=== PATIENT | female | born 1985 | race Two or more races ===

== ENCOUNTER 2020-12-26 13:55 | Emergency (ER) | payer OTHER ==
[~2020-12-26] VITALS: Ht 157.5 cm; Wt 82.1 kg
== END 2020-12-26 18:38 | disposition home or self-care (01) ==
LOC: ER 13:55
DX: R10.84 Generalized abdominal pain (principal)

== ENCOUNTER 2021-11-09 08:14 | Emergency (ER) | payer OTHER ==
[~2021-11-09] VITALS: Ht 157.5 cm; Wt 81.2 kg
[2021-11-09] MEDS ORDERED: KETO10TA2 PO (10:13)
== END 2021-11-09 11:50 | disposition home or self-care (01) ==
LOC: ER 08:14
DX: M79.672 Pain in left foot (principal)

== ENCOUNTER 2025-07-04 08:56 | Emergency (ER) | payer OTHER ==
[~2025-07-04] VITALS: Ht 157.5 cm; Wt 78.5 kg
[~2025-07-04 08:56] MED LIST: KETO10TA2 PO
[2025-07-04] MEDS ORDERED: ONDANSETRON HCL 2 MG/ML VIAL ONE (09:49)
[2025-07-04] MEDS ORDERED: FAMOTIDINE/PF 20 MG/2 ML VIAL ONE (09:50)
[2025-07-04] MEDS ORDERED: FAMOTIDINE/PF 20 MG/2 ML VIAL IV ONE (10:00)
[2025-07-04] MEDS ORDERED: ONDANSETRON HCL 2 MG/ML VIAL IV ONE (10:00)
[2025-07-04] MEDS ORDERED: 0.9 % SODIUM CHLORIDE 1,000 ML IV ONE (10:00)
[2025-07-04 10:40] LABS: BASO % 0.5 % (0.1-1.2); EOS # 0.10 (0.04-0.54); EOS % 1.1 % (0.7-7.0); LYMPH # 1.77 (1.18-3.74); LYMPH % 19.5 % (19.3-53.1); MEAN PLATELET VOLUME 9.80 fl (9.4-12.4); MONO # 0.66 (0.24-0.82); MONO % 7.3 % (4.7-12.5); NEUT # 6.49 (1.56-6.13); NEUT % 71.3 % (34.0-71.1); RED CELL DISTRIBUTION WIDTH 12.0 % (11.6-14.4)
[2025-07-04 11:09] LABS: URINE APPEARANCE Clear; URINE BILIRRUBIN Negative (NEGATIVE); URINE BLOOD Trace; URINE COLOR Yellow; URINE GLUCOSE Negative (NEGATIVE); URINE KETONE Negative (NEGATIVE); URINE LEUKOCYTE Negative; URINE NITRATE Negative; URINE PROTEIN Negative (NEGATIVE); URINE UROBILINOGEN 0.2 E.U./dl
[2025-07-04 11:13] LABS: URINE BACTERIA 172.7 uL (0.0-1933); URINE CAST 0.00 uL (0.0-1.40); URINE EPITHELIAL CELLS 2.4 uL (0.0-38.8); URINE RBC 14.3 uL (0.0-20.8); URINE WBC 0.7 uL (0.0-23.2)
[2025-07-04 11:29] LABS: ALT/SGPT 26.0 U/L (12-78); AST/SGOT 20.0 U/L (15-37); BILIRUBIN TOTAL 0.95 mg/dL (0.3-1.2); BUN CREA RATIO 13.0 (7.0-25.0); CREATININE SERUM 0.71 mg/dL (0.55-1.02); GFR 92.13; GLOBULINA 3.7 G/DL (2.4-3.5); GLUCOSE FASTING 90.0 mg/dL (65-100); OSMOLALITY SERUM 279.0 MOSM/KG (275-295)
[2025-07-04] MEDS ORDERED: KETOROLAC TROMETHAMINE 30 MG VIAL ONE (14:07)
[2025-07-04] MEDS ORDERED: KETOROLAC TROMETHAMINE 30 MG VIAL IV ONE (14:15)
== END 2025-07-04 14:24 | disposition home or self-care (01) ==
LOC: ER 08:57
PROVIDERS: General Practice
DX: N83.202 Unspecified ovarian cyst, left side (principal); R10.32 Left lower quadrant pain; K57.32 Diverticulitis of large intestine without perforation or abscess without bleeding

== ENCOUNTER 2025-07-11 21:45 | Emergency (ER) | payer OTHER ==
[~2025-07-11] VITALS: Ht 157.5 cm; Wt 77.6 kg
[2025-07-11] MEDS ORDERED: PROTONIX40 MG PO (22:11)
[2025-07-11] MEDS ORDERED: PEPCID AC20 MG (22:12)
[2025-07-11] MEDS ORDERED: FLUCONAZOLE150 MG PO (22:12)
[2025-07-11] MEDS ORDERED: DEXAMETHASONE SODIUM PHOSPHATE 4 MG/ML VIAL IM ONE (23:15)
[2025-07-11] MEDS ORDERED: FAMOTIDINE/PF 20 MG/2 ML VIAL IV ONE (23:15)
[2025-07-12] MEDS ORDERED: DEXAMETHASONE SODIUM PHOSPHATE 4 MG/ML VIAL ONE (01:06)
[2025-07-12] MEDS ORDERED: FAMOTIDINE/PF 20 MG/2 ML VIAL ONE (01:07)
[2025-07-12 02:44] LABS: BASO % 0.4 % (0.1-1.2); EOS # 0.12 (0.04-0.54); EOS % 1.2 % (0.7-7.0); LYMPH # 1.98 (1.18-3.74); LYMPH % 20.6 % (19.3-53.1); MEAN PLATELET VOLUME 10.30 fl (9.4-12.4); MONO # 0.66 (0.24-0.82); MONO % 6.9 % (4.7-12.5); NEUT # 6.79 (1.56-6.13); NEUT % 70.6 % (34.0-71.1); RED CELL DISTRIBUTION WIDTH 11.9 % (11.6-14.4)
[2025-07-12 03:16] LABS: BUN CREA RATIO 14.0 (7.0-25.0); CREATININE SERUM 0.81 mg/dL (0.55-1.02); GFR 79.13; GLUCOSE FASTING 93.0 mg/dL (65-100); OSMOLALITY SERUM 277.0 MOSM/KG (275-295)
[2025-07-12 04:47] LABS: COVID-19 AG NEGATIVE (NEGATIVE)
[2025-07-12] MEDS ORDERED: CARAFATE1 GM PO (05:17)
[2025-07-12] MEDS ORDERED: PEPCID40 MG PO (05:17)
== END 2025-07-12 05:38 | disposition home or self-care (01) ==
LOC: ER 21:46
PROVIDERS: Student in an Organized Health Care Education/Training Program
DX: K21.9 Gastro-esophageal reflux disease without esophagitis (principal); Z20.822 Contact with and (suspected) exposure to COVID-19

== ENCOUNTER 2025-07-23 11:21 | Outpatient (CLI) | payer OTHER ==
[~2025-07-23 11:21] MED LIST changes: +CARAFATE1 GM PO; +FLUCONAZOLE150 MG PO; +PEPCID AC20 MG; +PEPCID40 MG PO; +PROTONIX40 MG PO
== END 2025-07-23 11:25 | disposition home or self-care (01) ==
LOC: SONOGRAMA 11:21
PROVIDERS: ATTEND Obstetrics & Gynecology
DX: N83.00 Follicular cyst of ovary, unspecified side (principal); N20.0 Calculus of kidney